=== PATIENT | male | born 1975 ===

== ENCOUNTER 2023-02-15 07:23 | Day surgery (SDC) | payer MEDICARE ==
[~2023-02-15] VITALS: Ht 180.3 cm; Wt 92.8 kg
[2023-02-15] MEDS ORDERED: DILANTIN 100MG100 MG PO (08:00)
[2023-02-15] MEDS ORDERED: CRESTOR 10MG10 MG PO (08:01)
[2023-02-15] MEDS ORDERED: KEPPRA 500MG500 MG PO (08:03)
[2023-02-15] MEDS ORDERED: DEPAKOTE 250MG250 MG PO (08:05)
[2023-02-15 09:50] VITALS: BP 115/93; PULSE 55; TEMP 97.2
--- NOTE | 2023-02-15 09:50 | NUR ---
The patient arrived back to [facility] from the endoscopy suite at this time. The patient ambulated from the cart to the recliner in his room with the stand by assistance of two nurses and appeared to tolerate the activity well. Post procedure vital signs were started at this time. Sister at bedside. Call light is within reach. Warm blanket provided. The patient agrees to try some apple juice at this time. Denies any further needs.
[2023-02-15 10:05] VITALS: BP 115/86; PULSE 59
--- NOTE | 2023-02-15 10:05 | NUR ---
The patient has finished his juice and denies wanting anything further to eat or drinik at this time. Sister remains at bedside. Vital signs appear stable.
[2023-02-15 10:20] VITALS: BP 114/80; PULSE 55
--- NOTE | 2023-02-15 10:29 | NUR ---
The patient is waiting to speak with Dr. Naik prior to discharge. Denies any further needs.
[2023-02-15 10:35] VITALS: BP 114/78; PULSE 60
--- NOTE | 2023-02-15 10:35 | NUR ---
Dr. Naik has been in to speak with the patient and his sister. Discharge instructions were reviewed with the patient and his sister at this time. They both verbalized understanding and have no questions for the nurse at this time. The patient's IV to his right hand was remvoed and a pressure dressing was applied to the site.
--- NOTE | 2023-02-15 10:50 | NUR ---
The patient was escorted out via wheelchair to a private vehicle by [facility] [place]. The patient's belongings and discharge paperwork were sent with him. The patient's sister is present to drive him home.
--- NOTE | 2023-02-15 14:19 | NUR ---
0758 PT AMBULATORY TO [facility] WITH STEADY GAIT, BREATHING EVEN AND UNLABORED, PT IS ALERT AND ORIENTED, ACCOMPANIED TODAY BU HIS SISTER. CONSENTS REVIEWED W/ PT AND HIS SISTER AND SIGNED BY PT. IV ESTABLISHED. LR INFUSING VIA GRAVITY AT [facility]. CALL LIGHT IN REACH. WARM BLANKET PROVIDED.
== END 2023-02-15 10:50 | disposition home or self-care (01) ==
LOC: SDCO 07:23
DX: Z12.11 Encounter for screening for malignant neoplasm of colon (principal); D12.2 Benign neoplasm of ascending colon; Z80.0 Family history of malignant neoplasm of digestive organs
CPT/HCPCS: J2704; J7120